=== PATIENT | male | born 1980 | race Caucasian/White ===

== ENCOUNTER 2019-10-16 17:52 | Emergency (ER) | payer MEDICARE, MEDICAID ==
[~2019-10-16 17:52] MED LIST: ALEVE ARTHRITI220 MG PO; ALIVE MENS ENERGY; CYCLOBENZAPRINE10 MG PO; LORTAB 1010 MG PO; LYRICA300 MG PO; MELATONIN QUICK5 MG PO; MIRALAX3350 N1 PO; NASOGEL
[2019-10-16] MEDS ORDERED: CLINDAMYCIN300 M1 PO (18:25)
[2019-10-16] MEDS ORDERED: GABAPENTIN300 M2 PO (18:25)
[2019-10-16] MEDS ORDERED: AMOXICILLIN875 MG PO (18:36)
[2019-10-16 18:45] VITALS: BP 115/79
== END 2019-10-16 18:45 | disposition home or self-care (01) ==
LOC: ED 17:52
DX: M84.68XA Pathological fracture in other disease, other site, initial encounter for fracture (principal); K02.9 Dental caries, unspecified; K04.7 Periapical abscess without sinus; K05.10 Chronic gingivitis, plaque induced